=== PATIENT | male | born 1960 ===

== ENCOUNTER 2016-05-24 18:05 | Emergency (ER) | payer OTHER ==
[2016-05-24 18:24] VITALS: BMI 25.7
[2016-05-24 18:28] VITALS: RESP 16; O2SAT 99
--- NOTE | 2016-05-24 18:39 | ED PDOC ---
Arrival/HPI - General Chief Complaint: Abdominal Pain Time Seen by Provider: 05/24/16 18:24 Historian: Patient - History of Present Illness Narrative History of Present Illness (Text): 05/24/16 18:39 This 55 yo male presents to this ED c/o epigastric pain x 4 weeks. Patient stated symptoms started after drinking few beers x 4 weeks ago. Patient noted acid reflux with epigastric pain. Patient has taken Ranitidine with moderate relief of symptoms. Patient denies sob, cp, fever, hematemesis, rectal bleeding , melena, hematochezia, nausea, vomiting, or diarrhea. PSH: hernia repair PMH: GERD No PMD Time/Duration: > month Quality: Aching, Burning Context: Home Past Medical History - Provider Review Nursing Documentation Reviewed: Yes - Psychiatric Hx Substance Use: No Family/Social History - Physician Review Nursing Documentation Reviewed: Yes Family/Social History: No Known Family HX Smoking Status: Never Smoked Hx Alcohol Use: No Hx Substance Use: No Allergies/Home Meds Allergies/Adverse Reactions: Allergies No Known Allergies Allergy (Verified 05/24/16 18:24) Review of Systems - Review of Systems Constitutional: Normal. absent: Fatigue, Weight Change, Fevers Eyes: Normal ENT: Normal Respiratory: Normal Cardiovascular: Normal Gastrointestinal: Abdominal Pain (Epigastric pain), Other ((+) acid reflux). absent: Constipation, Diarrhea, Nausea, Vomiting Genitourinary Male: Normal Musculoskeletal: Normal Skin: Normal Neurological: Normal Endocrine: Normal Hemo/Lymphatic: Normal Psychiatric: Normal Physical Exam Vital Signs Temp Pulse Resp BP Pulse Ox 05/24/16 18:24 98.8 F 80 16 162/93 H 99 Temperature: Afebrile Blood Pressure: Normal Pulse: Regular Respiratory Rate: Normal Appearance: Positive for: Well-Appearing, Non-Toxic, Comfortable Pain Distress: None Mental Status: Positive for: Alert and Oriented X 3 - Systems Exam Head: Present: Atraumatic, Normocephalic Pupils: Present: PERRL Extroacular Muscles: Present: EOMI Conjunctiva: Present: Normal Mouth: Present: Moist Mucous Membranes Neck: Present: Normal Range of Motion Respiratory/Chest: Present: Clear to Auscultation, Good Air Exchange. No: Respiratory Distress, Accessory Muscle Use Cardiovascular: Present: Regular Rate and Rhythm, Normal S1, S2. No: Murmurs Abdomen: Present: Normal Bowel Sounds. No: Tenderness, Distention, Peritoneal Signs, Rebound, Guarding Back: Present: Normal Inspection. No: CVA Tenderness Upper Extremity: Present: Normal Inspection, Normal ROM, NORMAL PULSES, Neurovascularly Intact, Capillary Refill < 2s. No: Cyanosis, Edema Lower Extremity: Present: Normal Inspection, NORMAL PULSES, Normal ROM, Neurovascularly Intact, Capillary Refill < 2 s. No: Edema Neurological: Present: GCS=15, CN II-XII Intact, Speech Normal Skin: Present: Warm, Dry, Normal Color. No: Rashes Psychiatric: Present: Alert, Oriented x 3, Normal Insight, Normal Concentration Medical Decision Making ED Course and Treatment: 05/24/16 20:43 Re-evaluation. Patient feels better. Discussed results and plan with patient who expresses understanding. All questions answered and there is agreement with the plan to discharge home with instructions. Patient stable for discharge. Return if symptoms persist or worsen. Patient came c/o GERD, and epigastric pain for over 4 weeks. Labs were unremarkable. normal lipase, and liver enzymes. Patient was treated with GI cocktail which it has improved symptoms. Patient feels better and he wishes to be discharged home. Re-evaluation Time: 20:44 Reassessment Condition: Re-examined, Improved - Lab Interpretations Lab Results: 05/24/16 19:35 05/24/16 19:35 Lab Results 05/24/16 19:35: WBC 8.2, RBC 5.17, Hgb 15.4, Hct 42.7, MCV 82.6, MCH 29.8, MCHC 36.1, RDW 12.5, Plt Count 243, MPV 9.8, Gran % 74.9 H, Lymph % (Auto) 19.1 L, [place] % (Auto) 4.9, Eos % (Auto) 1.0 L, Baso % (Auto) 0.1, Gran # 6.17, Lymph # 1.6, Caswell # 0.4, Eos # 0.1, Baso # 0.01, PT 11.4, INR 1.06, APTT 31.4 H, Sodium 132, Potassium 3.7, Chloride 95 L, Carbon Dioxide 28, Anion Gap 13, BUN 12, Creatinine 0.7, Est GFR ( Amer) > 60, Est GFR (Non-Af Amer) > 60, Random Glucose 144 H, Calcium 9.2, Total Bilirubin 1.6 H, AST 17, ALT 30, Alkaline Phosphatase 107, Total Protein 8.4 H, Albumin 4.4, Globulin 4.0, Albumin/ Globulin Ratio 1.1, Amylase 95, Lipase 273 - Medication Orders Current Medication Orders: Discontinued Medications Al Hydrox/Mg Hydrox/Simethicone (Maalox Plus 30 Ml) 30 ml PO STAT STA Stop: 05/24/16 18:51 Last Admin: 05/24/16 19:27 Dose: 30 ML Belladonna/Phenobarbital ( Elixir) 10 ml PO STAT STA Stop: 05/24/16 18:51 Last Admin: 05/24/16 19:27 Dose: 10 ML Famotidine (Pepcid) 20 mg IVP STAT STA Stop: 05/24/16 18:50 Last Admin: 05/24/16 19:26 Dose: 20 MG IVP Administration Document 05/24/16 19:26 CASH (Rec: 05/24/16 19:26 CASH [facility] [id number]) Charges for Administration # of IVP Administrations 1 Home Med (*Refrigerator Open) Confirm Administered Dose 1 unit XX .STK-MED ONE Stop: 05/24/16 18:52 Sodium Chloride (Sodium Chloride 0.9%) 1,000 mls @ 1,000 mls/hr IV .Q1H STA Stop: 05/24/16 19:48 Last Admin: 05/24/16 19:15 Dose: 1,000 MLS/HR eMAR Start Stop Document 05/24/16 19:15 CASH (Rec: 05/24/16 19:26 CASH [facility] [id number]) Intravenous Solution Start Date 05/24/16 Start Time 19:15 End Date 05/24/16 End time 20:15 Total Infusion Time 60 Lidocaine HCl (Lidocaine 2% Viscous) 15 ml PO STAT STA Stop: 05/24/16 18:51 Last Admin: 05/24/16 19:27 Dose: 15 ML Ondansetron HCl (Zofran Inj) 4 mg IVP STAT STA Stop: 05/24/16 18:50 Last Admin: 05/24/16 19:26 Dose: 4 MG IVP Administration Document 05/24/16 19:26 CASH (Rec: 05/24/16 19:26 CASH [facility] [id number]) Charges for Administration # of IVP Administrations 1 Disposition/Present on Arrival - Present on Arrival Any Indicators Present on Arrival: No History of DVT/PE: No History of Uncontrolled Diabetes: No Urinary Catheter: No History of Decub. Ulcer: No History Surgical Site Infection Following: None - Disposition Have Diagnosis and Disposition been Completed?: Yes Diagnosis: Epigastric pain, GERD (gastroesophageal reflux disease) Disposition: HOME/ ROUTINE Disposition Time: 20:45 Patient Plan: Discharge Condition: GOOD Discharge Instructions (ExitCare): Gastroesophageal Reflux Disease (ED), Diet for Ulcers and Gastritis (ED) Additional Instructions: Call clinic for follow up visit and revaluation. You may need to have a colonoscopy and Endoscopy which it is recommended for patient 50 years old or older non-urgent. Return to emergency if symptoms worsen. Take medication as instructed. Call professional poker player department to help you with appointment Prescriptions: Sucralfate [Carafate] 1 gm PO DAILY #30 tab Omeprazole 40 mg PO DAILY #30 capsule. Ondansetron [Zofran] 4 mg PO Q8H PRN #20 tab PRN Reason: Nausea/Vomiting Referrals: PCP,NO [Primary Care Provider] - Follow up with primary [facility] [Outside] - Follow up with primary [facility] [Outside] - Follow up with primary Forms: WORK NOTE
[2016-05-24] MEDS ORDERED: Sodium Chloride 0.9% 1,000 ML IV STA (18:49)
[2016-05-24] MEDS ORDERED: Atrop/Hyosc/Scopal/PB Elixir (120 ml) PO STA (18:50)
[2016-05-24] MEDS ORDERED: Alum-Mag Hydrox-Simethicone Susp (30 mL) PO STA (18:50)
[2016-05-24 19:43] LABS: ADD MANUAL DIFF? NO
[2016-05-24 19:46] LABS: BASO # 0.01 K/mm3 (0.0-2.0); BASO % 0.1 % (0.0-3.0); EOS # 0.1 (0.0-0.7); GRAN # 6.17 (1.4-6.5); GRAN % 74.9 % (50.0-68.0); HEMATOCRIT 42.7 % (42.0-52.0); LYMPH # 1.6 (1.2-3.4); LYMPH % 19.1 % (22.0-35.0); MEAN CELL VOLUME 82.6 fL (80.0-105.0); MEAN CORPUSCULAR HEMOGLOBIN 29.8 pg (25.0-35.0); MEAN CORPUSCULAR HGB CONC 36.1 g/dl (31.0-37.0); MEAN PLATELET VOLUME 9.8 fl (7.0-11.0); MONO # 0.4 (0.1-0.6); MONO % 4.9 % (1.0-6.0); PLATELET COUNT 243 10^3/uL (120.0-450.0); RED CELL DISTRIBUTION WIDTH 12.5 % (11.5-14.5); WHITE BLOOD COUNT 8.2 10^3/ul (4.5-11.0)
[2016-05-24 19:56] LABS: ALB/GLOB RATIO 1.1 (1.1-1.8); ALKALINE PHOSPHATASE 107 U/L (38-133); ALT/SGPT 30 U/L (7-56); AMYLASE 95 U/L (35-125); AST/SGOT 17 U/L (15-59); BILIRUBIN,TOTAL 1.6 mg/dL (0.2-1.3); BLOOD UREA NITROGEN 12 mg/dL (7-21); CALCIUM 9.2 mg/dL (8.4-10.5); CARBON DIOXIDE 28 mmol/L (21-33); CHLORIDE 95 mmol/L (98-107); GFR AFRICAN-AMERICAN > 60; GLUCOSE,RANDOM 144 mg/dL (70-110); LIPASE 273 U/L (23-300); POTASSIUM 3.7 mmol/L (3.6-5.0); SODIUM 132 mmol/L (132-148); TOTAL PROTEIN 8.4 g/dL (5.8-8.3)
[2016-05-24 20:02] LABS: INR 1.06 (0.93-1.08); PARTIAL THROMBOPLASTIN TIME 31.4 Seconds (23.7-30.8)
[2016-05-24 21:37] VITALS: BP 137/78; PULSE 69; TEMP 98
== END 2016-05-24 21:39 | disposition home or self-care (01) ==
LOC: ED 18:05
DX: R10.13 Epigastric pain (principal); K21.9 Gastro-esophageal reflux disease without esophagitis
CPT/HCPCS: 80053; 82150; 83690; 85025; 85610; 85730; 96361; 96374; 96375; 99283; J2405; J7040